=== PATIENT | male | born 1930 | race African-American/Black ===

== ENCOUNTER → 2016-05-13 | Outpatient (CLI) | payer MEDICARE, OTHER ==
[2015-08-26 09:55] VITALS: BP 156/80
[~2016-05-13] MED LIST: AMLO5TAB4 PO; ASPI81TA2 PO; CARI350T PO; OXYC-250 PO; OXYC1TAB9 PO; TAMS0.4C97 PO
--- NOTE | 2016-05-13 17:41 | RAD ---
APPROVED REPORT Patient Location : OUT-PATIENT Indications Stasis Disease Venous Ulcers Skin Changes Deep System Deep Venous Thrombosis present : No Deep Venous Reflux present : Yes Greater Saphenous Veins (GSV) Significant venous relux noted in the RIGHT GSV at the following levels : Superficial Femoral Junctio n Significant venous relux noted in the LEFT GSV at the following levels : Superficial Femoral Junction Accessory Veins Right Anterior Accessory Vein : Present : Yes Leftt Anterior Accessory Vein : Present : Yes Findings Venous reflux study of the bilateral greater and lesser saphenous veins was performed. The right grea t saphenous vein is positive for reflux with a maximum time of 2.8 seconds and a greatest diameter me asurement of 6.8 mm. The left great saphenous vein is positive for reflux with a maximum time of 3.1 seconds and measures approximately 5.9 mm. The bilateral lesser saphenous veins were unable to be imaged due to small size and lack of clear loco ntification by duplex ultrasonography. Multiple perforators are noted on the right side measuring 1 mm to 4.4 mm. Right side: Perforators are noted approximately 15, 18, 25, 26 and 35 cm up and 6, 6, 8, 8, 9 cm back , respectively. Left side: 1 funeral service apprentice 15 cm up in 67 m back with a diameter of 2.5 mm is noted. Critical Notification Critical Value: No <Conclusion> Positive for significant reflux in the bilateral greater saphenous veins with multiple calf perforato rs noted bilaterally.
== END | disposition home or self-care (01) ==
LOC: US 15:08
PROVIDERS: ATTEND Internal Medicine Cardiovascular Disease
DX: I10 Essential (primary) hypertension (principal); I87.2 Venous insufficiency (chronic) (peripheral)
CPT/HCPCS: 93970

== ENCOUNTER → 2016-06-01 | Outpatient (CLI) | payer MEDICARE, OTHER ==
[2015-08-26 09:55] VITALS: BP 156/80
--- NOTE | 2016-06-01 12:53 | CARD ---
APPROVED REPORT EXAM: Two-dimensional and M-mode echocardiogram with Doppler and color Doppler. Other Information Quality : Average Rhythm : NSR INDICATION Hypertension/HCVD 2D DIMENSIONS RVDd2.6 (2.9-3.5cm)Left Atrium(2D)3.2 (1.6-4.0cm) IVSd1.2 (0.7-1.1cm)Aortic Root(2D)3.4 (2.0-3.7cm) LVDd4.7 (3.9-5.9cm)LVOT Diameter2.0 (1.8-2.4cm) PWd1.2 (0.7-1.1cm)LVDs3.5 (2.5-4.0cm) FS (%) 26.5 %SV53.7 ml LVEF(%)51.8 (>50%) Aortic Valve AoV Peak Miller.173.9cm/sAoV VTI29.1cm AO Peak GR.12.1mmHgLVOT Peak Miller.129.3cm/s AO Mean GR.6mmHgAVA (VMAX)2.36cm2 AI P 1/2 [id number] Mitral Valve MV E Kjpphgbm37.5cm/sMV E Peak Gr.4mmHg MV DECEL [id number] A Fqpxxthv489.4cm/s MV E Mean Gr.1mmHgMV [id number] E/A Ratio0.5MV A Ihwvnsyp09ri MVA (PHT)3.08cm2 Tricuspid Valve TR P. Hpxrxpci645bc/sRAP [id number] TR Peak Gr.05fwRqZHNB02czUh LEFT VENTRICLE The left ventricle is normal size. There is borderline concentric left ventricular hypertrophy. Left ventricle systolic function is normal. The Ejection Fraction is 50-55%. There is normal LV segmental wall motion. Tissue Doppler imaging reveals mild left ventricular diastolic dysfunction. Transmitral Doppler flow pattern is Grade I-abnormal relaxation pattern. RIGHT VENTRICLE The right ventricle is normal size. The right ventricular systolic function is normal. ATRIA The left atrium size is normal. The right atrium size is normal. The interatrial septum is intact wit h no evidence for an atrial septal defect or patent foramen ovale as noted on 2-D or Doppler imaging. AORTIC VALVE The aortic valve is mildly sclerotic. The aortic valve is trileaflet. Doppler and Color Flow revealed trace aortic regurgitation. There is no significant aortic valvular stenosis. MITRAL VALVE The mitral valve leaflets are thickened. There is no mitral valve stenosis. Doppler and Color Flow re vealed no mitral valve regurgitation noted. TRICUSPID VALVE The tricuspid valve is normal in structure and function. Doppler and Color Flow revealed mild tricusp id regurgitation. The PA pressure was estimated at 23 mmHg. There is no tricuspid valve stenosis. PULMONIC VALVE The pulmonic valve is not well visualized. Doppler and Color Flow revealed no pulmonic valvular regur gitation. There is no pulmonic valvular stenosis. GREAT VESSELS The aortic root is normal in size. Normal pulmonary venous flow (Doppler). The IVC is normal in size and collapses >50% with inspiration. PERICARDIAL EFFUSION There is no evidence of significant pericardial effusion. Critical Notification Critical Value: No <Conclusion> The left ventricle is normal size. Left ventricle systolic function is normal. The Ejection Fraction is 50-55%. There is borderline concentric left ventricular hypertrophy. There is no significant aortic valvular stenosis. Doppler and Color Flow revealed trace aortic regurgitation. Doppler and Color Flow revealed no mitral valve regurgitation noted. Doppler and Color Flow revealed mild tricuspid regurgitation. The PA pressure was estimated at 23 mmHg.
== END | disposition home or self-care (01) ==
LOC: ECHO 08:13
PROVIDERS: ATTEND Internal Medicine Cardiovascular Disease
DX: I10 Essential (primary) hypertension (principal); I08.2 Rheumatic disorders of both aortic and tricuspid valves
CPT/HCPCS: 93306

== ENCOUNTER → 2016-06-16 | Outpatient (CLI) | payer MEDICARE, OTHER ==
[2015-08-26 09:55] VITALS: BP 156/80
--- NOTE | 2016-06-15 14:48 | RAD ---
APPROVED REPORT Bilateral Lower Extremity Venous Study for DVT Patient Location: OUT-PATIENT Indications s/p ablation/venous insuff Vein Imaging (Right) CFV (R): Compressible SFJ (R): Compressible FEM (R): Compressible POP (R): Compressible DFV (R): Compressible PTV (R): Spontaneous Peroneals (R): Spontaneous Vein Imaging (Left) CFV (L): Compressible SFJ (L): Compressible FEM (L): Compressible POP (L): Compressible DFV (L): Compressible PTV (L): Spontaneous Peroneals (L): Spontaneous Doppler Evaluation (Right) CFV (R): Spontaneous POP (R):Spontaneous Doppler Evaluation (Left) CFV (L):Spontaneous POP (L):Spontaneous Findings Carbajal scale images demonstrate normal compressibility of the bilateral common femoral, superficial fem oral and popliteal veins. The bilateral great saphenous veins are occluded due to prior ablation. Normal spectral waveforms and color doppler noted with spontaneous flow noted below the knees. The be low knee veins are not well visualized. Critical Notification Critical Value: No <Conclusion> No evidence of DVT in the bilateral lower extremities. Previously ablated bilateral GSV.
== END | disposition home or self-care (01) ==
LOC: US 10:00
PROVIDERS: ATTEND Internal Medicine Cardiovascular Disease
DX: I87.2 Venous insufficiency (chronic) (peripheral) (principal)
CPT/HCPCS: 93970

== ENCOUNTER → 2016-10-03 | Outpatient (CLI) | payer MEDICARE, OTHER ==
[2015-08-26 09:55] VITALS: BP 156/80
[~2016-10-03] MED LIST changes: +ASPI-630 PO; -ASPI81TA2 PO; +NAPR220C4 PO; -OXYC-250 PO; +OXYC-328 PO; +TRIA15CR3 TP
[2016-10-03 08:49] LABS: BILIRUBIN,URINE NEGATIVE (NEG); GLUCOSE,URINE NEGATIVE (NEG); NITRITE,URINE NEGATIVE (NEG); PROTEIN,URINE NEGATIVE (NEG-TRACE); UROBILINOGEN,URINE 0.2 mg/dL (0.2 mg/dL)
[2016-10-03 08:56] LABS: BACTERIA,URINE 0 /HPF (0-FEW); RBC,URINE 0 /HPF (0-2); WBC,URINE 0 /HPF (0-4)
[2016-10-03 09:32] LABS: ALBUMIN 3.7 g/dL (3.4-5.0); CALCIUM 8.8 mg/dL (8.5-10.1); CREATININE 0.8 mg/dL (0.7-1.3); GFR 111.7; POTASSIUM 4.2 mmol/L (3.5-5.1)
[2016-10-03 09:33] LABS: BASO # 0.1 x10^3/uL (0.0-0.2); BASO % 1 % (0-3); EOS % 6 % (0-3); HEMATOCRIT 44.5 % (39.0-53.0); HEMOGLOBIN 14.8 g/dL (13.0-17.5); LYMPH # 1.3 x10^3/uL (1.0-4.8); LYMPH % 25 % (24-48); MEAN CORPUSCULAR HEMOGLOBIN 29 pg (25-35); MEAN CORPUSCULAR HGB CONC 33 g/dL (31-37); MEAN CORPUSCULAR VOLUME 88 fL (79-100); MONO % 10 % (0-9); NEUT % 58 % (31-73); PLATELET COUNT 247 x10^3/uL (140-400); RED BLOOD COUNT 5.05 x10^6/uL (4.30-5.70); RED CELL DISTRIBUTION WIDTH 15.9 % (11.5-14.5); WHITE BLOOD COUNT 5.1 x10^3/uL (4.0-11.0)
[2016-10-03 09:54] LABS: PROTHROMBIN TIME PATIENT 12.8 SEC (11.7-14.0)
--- NOTE | 2016-10-03 15:20 | RAD ---
Chest, 2 views, 10/03/2016: History: Preop evaluation for knee surgery The heart size and pulmonary vascularity are normal. There is tortuosity of the thoracic aorta. No pulmonary infiltrate is seen. There is no evidence of pleural fluid. Moderate hypertrophic spurring is present in the spine. IMPRESSION: No acute cardiopulmonary abnormality is detected.
== END | disposition home or self-care (01) ==
LOC: SURGPAT 13:44
PROVIDERS: ATTEND Orthopaedic Surgery
DX: Z01.818 Encounter for other preprocedural examination (principal); I10 Essential (primary) hypertension; R79.1 Abnormal coagulation profile
CPT/HCPCS: 36415; 71020; 80048; 81001; 82040; 85025; 85610; 85651; 85730; 87641

== ENCOUNTER 2016-10-18 08:48 | Inpatient (IN) | payer MEDICARE, OTHER ==
--- NOTE | 2016-10-17 12:21 | PDOC1 ---
History and Physical Date of Admission Date of Admission DATE: 10/18/16 Identification/Chief Complaint Chief Complaint left knee osteoarthritis pain Problems: Source Source: Chart review History of Present Illness History of Present Illness The patient is an 85 year old male who presents today with persisting left knee pain for the last year. He had a series of Orthovisc injections that he states were no help, the last being 08/08/2016. He has a history of right total knee arthroplasty 11 years ago, and would like a left knee replacement. He complains of persisting swelling in his right knee. He lives at home and drives. Past Medical History Past Medical History venous insuf, frequent urination, insomnia, DJD, back pain, pulmonary nodules - stable 2014 Cardiovascular: HTN, Hyperlipidemia Musculoskeletal: Osteoarthritis Past Surgical History Past Surgical History: Total knee replacement (right - 11/2002, L3-5 spinal fuxion, left shoulder, left orchiectomy, umbilical hernia) Family History Family History: Cancer, Hypertension Social History Smoke: Quit (07/2013) ALCOHOL: none Drugs: None Current Medications Current Medications Active Scripts Active Reported Triamcinolone Acetonide 0.1% Cream (Triamcinolone Acetonide) 15 Gm Cream..g. 1 Teresa TP Aleve (Naproxen Sodium) 220 Mg Capsule 220 Mg PO BID Soma (Carisoprodol) 350 Mg Tablet 1 Tab PO BID PRN Oxycodone-Acetaminophen 10-325 (Oxycodone Hcl/Acetaminophen) 1 Each Tablet 1 Tab PO Q4HRS PRN Norvasc (Amlodipine Besylate) 5 Mg Tablet 10 Mg PO DAILY Flomax (Tamsulosin Hcl) 0.4 Mg Cap.er.24h 1 Cap PO DAILY Allergies Allergies: Coded Allergies: pentazocine (Verified Adverse Reaction, Intermediate, Hives, 09/30/16) diclofenac (Verified Adverse Reaction, Unknown, Unknown, 09/30/16) Physical Exam General: Alert, Oriented X3, Cooperative, No acute distress HEENT: Atraumatic, EOMI Lungs: Normal air movement Heart: RRR Abdomen: Soft Extremities: No clubbing, No cyanosis, No edema, Normal pulses Skin: No rashes, No breakdown, No significant lesion Neuro: Normal speech, Sensation intact Psych/Mental Status: Mental status NL, Mood NL Images Images IMAGING REPORT Joint survey, hips knees and ankles Clinical information: Preoperative for total knee arthroplasty Comparison: None. Findings Bones: The angle between the right hip-ankle mechanical axis and the femoral shaft is 5. The angle between the left hip-ankle mechanical axis and the femoral shaft is 5 . The mechanical axis crosses near the center of the right knee, indicating proper mechanical alignment or trace varus alignment. The mechanical axis crosses far medial to the center of the left knee, indicating varus left knee alignment. Joints: There is narrowing of the left knee joint medially. The right knee joint has a total knee arthroplasty. The hips and ankles show minimal degenerative changes. Soft tissue: Normal. Impression: Varus alignment of the left knee. The difference between the mechanical axis and femoral shaft anatomic axis is 5 bilaterally VTE Prophylaxis Ordered VTE Prophylaxis Devices: Yes VTE Pharmacological Prophylaxi: Yes Assessment/Plan Assessment/Plan Left knee osteoarthritis pain. Despite his advanced age, Dr. Lala thinks he would do well with a knee replacement. Dr. Lala demonstrated the surgery using sawbones models and actual knee replacement parts. We discussed the joint center, the expected preoperative and postoperative plans and the expected hospitalization. We discussed the potential risks of infection, neurovascular injury, bleeding, blood clots, need for revision surgery, or other potential surgical or anesthetic complications. Preventing Falls: Care Instructions material was printed. ROMA UMANZOR Oct 17, 2016 12:21
[~2016-10-18] VITALS: Ht 168.9 cm; Wt 85.7 kg
[2016-10-18] VITALS (7 sets, daily range): BP systolic 136–154; BP diastolic 70–87
[~2016-10-18 08:48] MED LIST changes: +ACETAMINOPHEN 500 MG TABLET PO PRN; +BACITRACIN 50,000 UNIT in IV NORMAL SALINE 1000ML BAG 1,000 ML IRR ONE; +CELECOXIB 200 MG CAPSULE. PO PRN; +LIDOCAINE 1% 1 ML SYRINGE. ID PRN; +MORPHINE SULFATE 2 MG/ML DISP.SYRIN. IV PRN; +ONDANSETRON PF 4 MG/2 ML VIAL. IV PRN; +TRANEXAMIC ACID 1,000 MG in IV NS 50ML -- 1ST BAG INJ ONE; +TRANEXAMIC ACID 1,000 MG in IV NS 50ML -- 2ND BAG INJ ONE; +[UNRECOGNIZED DRUG - REMARK] INT ART ONE; +fentaNYL PF VIAL 100 MCG/2 ML VIAL IV PRN
[2016-10-18] MEDS ORDERED: CELE200C PO (09:19)
[2016-10-18] MEDS: IV RINGERS,LACTATED 1000ML 1,000 ML IV SCH ×2 (09:48→15:04)
[2016-10-18] MEDS ORDERED: SEVOFLURANE 61 TO 120 MINUTES. IH ONE (10:26)
[2016-10-18] MEDS ORDERED: PROPOFOL 20 ML IV ONE (10:28)
[2016-10-18] MEDS ORDERED: PHENYLEPHRINE in 0.9% NACL PF 1 MG/10 ML DISP.SYRIN. IV ONE (10:28)
[2016-10-18] MEDS ORDERED: ONDANSETRON PF 4 MG/2 ML VIAL. ONE (10:28)
[2016-10-18] MEDS ORDERED: fentaNYL PF VIAL 100 MCG/2 ML VIAL ONE ×3 (10:28→14:27)
[2016-10-18] MEDS ORDERED: LIDOCAINE 2% PF Vial for OR 5 ML VIAL. ONE (10:28)
[2016-10-18] MEDS ORDERED: DEXAMETHASONE SOD PHOS 20 MG/5 ML VIAL. ONE (10:28)
[2016-10-18] MEDS ORDERED: VANCOMYCIN 1 GM VIAL. CEMENT ONE (12:23)
[2016-10-18] MEDS ORDERED: fentaNYL PF VIAL 250 MCG/5 ML VIAL ONE (12:45)
[2016-10-18] MEDS ORDERED: ACETAMINOPHEN 325 MG TABLET. PO PRN (14:00)
[2016-10-18] MEDS ORDERED: DEXTROSE 50% 25 GM / 50ML DISP.SYRIN. IV PRN (14:00)
[2016-10-18] MEDS ORDERED: MORPHINE SULFATE 10 MG/ML VIAL. IV PRN (14:00)
[2016-10-18] MEDS ORDERED: traMADol 50 MG TABLET PO PRN ×2 (14:00)
[2016-10-18] MEDS ORDERED: CALCIUM CARBONATE 500 MG TAB.CHEW PO PRN (14:00)
[2016-10-18] MEDS ORDERED: HYDROcodone/APAP 10/325 1 TAB TABLET PO PRN (14:00)
[2016-10-18] MEDS ORDERED: PROCHLORPERAZINE 5 MG TABLET. PO PRN (14:00)
[2016-10-18] MEDS ORDERED: PROCHLORPERAZINE 10 MG/2 ML VIAL. IV PRN (14:00)
[2016-10-18] MEDS ORDERED: diphenhydrAMINE 50 MG/ML VIAL IV PRN (14:00)
[2016-10-18] MEDS ORDERED: fentaNYL PF VIAL 100 MCG/2 ML VIAL IV PRN ×2 (14:00)
[2016-10-18] MEDS ORDERED: MORPHINE SULFATE 2 MG/ML DISP.SYRIN. IV PRN (14:00)
[2016-10-18] MEDS ORDERED: ZOLPIDEM 5 MG TABLET. PO PRN (14:00)
[2016-10-18] MEDS ORDERED: 0.9 % SODIUM CHLORIDE 10 ML DISP.SYRIN. IV PRN (14:00)
[2016-10-18] MEDS ORDERED: HYDROcodone/APAP 7.5/325MG 1 TAB TABLET PO PRN (14:00)
[2016-10-18] MEDS ORDERED: METOCLOPRAMIDE HCL 10 MG/2 ML VIAL. IV PRN (14:00)
[2016-10-18] MEDS ORDERED: MORPHINE SULFATE 4 MG/ML DISP.SYRIN. IV PRN ×2 (14:00)
[2016-10-18] MEDS ORDERED: SEVOFLURANE > 120 MINUTES. IH ONE (14:13)
[2016-10-18] MEDS ORDERED: CARISOPRODOL 350 MG TABLET PO PRN (14:15)
--- NOTE | 2016-10-18 14:22 | PDOC4 ---
Operative Note Operative Note Date of Procedure: October 18, 2016 Pre-Op Diagnosis: Osteoarthritis left knee Post-Op Diagnosis: Osteoarthritis left knee Procedure: left total knee arthroplasty Surgeon: Manda Lala MD Sales Promotion Officer: Mago Conroy PA-C, Jim St PA-C Anesthesia: General EBL: 100 mL Specimens Obtained: left knee bone and soft tissue Complications: none Implant Company: [employer] Drains: Hemovac plus pain catheter Tourniquet time: 64 Minutes Tourniquet Pressure: 350 mm Hg Indications for Procedure: Arthritis pain unrelieved by nonoperative management. Findings: Severe osteoarthritis with bone on bone contact in all three compartments with varus malalignment Implants used: Size 4 left bicruciate stabilized Journey II BCS cobalt chrome femoral component, size 4 left Journey nonporous tibial baseplate, size 3 -4 15 mm constrained left Journey II BCS XLPE articular insert, 38 mm oval Carol Ann II resurfacing patellar component Procedure in Detail: The patient was identified in the preoperative holding area, and the correct left lower extremity was marked by me. The patient was taken to the operating room where the patient was anesthetized by the Department of Anesthesia. Preoperative antibiotics were given intravenously. Tranexamic acid 1 g was given intravenously for intraoperative hemostasis. A "time-out" procedure was performed. The patient was positioned supine on the operative table with a tourniquet on the upper left thigh. The left lower limb was thoroughly prepped and draped in sterile fashion. An impervious stockinet and adhesive drape were used such that the skin was entirely covered. An Allred leg mendez was used. The operating team wore personal exhaust-ventilated hoods. The tourniquet was inflated to 350 Hg. A midline skin incision was made with a scalpel using the patella and tibial tubercle as landmarks. Electrocautery was used for hemostasis. My development assistant used rake retractors. A medial parapatellar arthrotomy incision was used with extension into the distal quadriceps tendon. The patella was retracted laterally and Hohmann retractors were now used by my development assistant. Excess synovium, the menisci, and the cruciate ligaments were resected sharply. The patella was assessed and excess synovium and osteophytes around the patellar articulation were removed. The patella was measured with a caliper, cut freehand with a saw using caliper measurements, sized, and then drilled for an oval three-pegged patella component. Periarticular injection was used in the suprapatellar pouch and distal quadriceps muscle. Whitesides's line was assessed on the femur. An intra-medullary 5 degree cutting guide was pinned to the femur, and a distal femoral cut was made with an oscillating saw. An additional 2 mm resection was used due to the deep femoral sulcus, and deficient condyle.My development assistant held Hohmann retractors and an [facility] retractor to protect the medial and lateral collateral ligaments, the patellar tendon, the skin and the other soft tissues. An anterior referencing guide was applied with external rotation of 3 to match [place] s line. A 5-in-1 Journey II cutting guide was then applied and pinned to the femur. The posterior, anterior, and all chamfer cuts were made with the oscillating saw. An extramedullary guide was pinned to the tibia and rotational alignment and the planned resection thickness assessed. An external alignment pastora was used to verify the planned cut in the varus-valgus plane and regarding posterior slope referencing the tibial tubercle, the tibial shaft, the ankle joint, and the second metatarsal. The upper tibia was cut made with an oscillating saw. My development assistant held Hohmann retractors and a posterior cruciate ligament retractor to protect the medial and lateral collateral ligaments, the patellar tendon, the skin, the peroneal nerve and the other soft tissues. The upper tibia was sized with a trial baseplate. The posterior compartment was cleared of osteophytes and loose bodies, and posterior capsule released. Tish-articular injection was used in the posterior compartment. The box cut for a posterior stabilized component was made. A preliminary reduction was performed with a trial femur, trial tibial baseplate and trial polyethylene. Soft-tissue balancing was now performed, and extension and rotation of the alignments was checked using a guide pastora in the tibial trial and a guide pin in the femur. A medial release was required, using a 10 blade scalpel, and a Zendejas elevator to elevate the medial structures from the upper medial tibia. The stability was assessed using different thicknesses of tibial articular surface to find satisfactory stability and good range of motion. The rotation of the tibial component was marked on the upper tibia. Final trial reduction was now performed verifying patella tracking and tibiofemoral stability and alignment. The tibia preparation was completed with a drill, saw, and fin punch at the previously noted rotation. The final implants were verified and opened. Outer gloves were changed by the operating team. The bone cuts were washed thoroughly with the Perry InterPulse device and dried. Two packages of Faulkner + Nephew Rally HV bone cement were mixed in powdered form with 1 gm of Vancomycin, then vacuum-mixed with the monomer, and placed into a cement gun. The cut surfaces of the bone were thoroughly dried with Montoya-tip suction and with laparotomy sponges for cement interdigitation. The final components were cemented into place. The knee was kept at full extension while the cement hardened, and excess cement was removed. Tranexamic acid 1 g was redosed intravenously for additional intraoperative hemostasis. A final periarticular injection was used for pain relief. The tourniquet was released, and electrocautery was used for hemostasis. A final check of [id number] and stability was made, and the polyethylene implant final size was chosen. The polyethylene implant was secured to the tibial baseplate, and the knee was reduced a final time. Thorough irrigation was used. Hemovac and pain catheter were used.The arthrotomy was closed with interrupted [id number]-ot-ufpap #1 PDS suture. The arthrotomy incision was then run with #1 STRATAFIX Symmetric PDS Plus Knotless suture. The subcutaneous tissues were closed with #2-0 Vicryl by my development assistant. The skin was approximated with 3-0 STRATAFIX Spiral MONOCRYL Plus Knotless suture by my development assistant. The skin incision was then covered and reinforced with Dermabond Prineo mesh skin closure dressing. A bulky sterile gauze dressing was applied. Needle and sponge counts were correct. MANDA LALA MD Oct 18, 2016 14:22
[2016-10-18] MEDS: PROCHLORPERAZINE 10 MG/2 ML VIAL. IV PRN ×2 (14:30→15:13)
[2016-10-18] MEDS: fentaNYL PF VIAL 100 MCG/2 ML VIAL IV PRN ×2 (14:30→14:53)
--- NOTE | 2016-10-18 14:52 | RAD ---
2 views left knee without comparison for postop, total knee arthroplasty. Findings: Postsurgical changes of a total knee arthroplasty are present. No periprosthetic lucencies are identified. No unexpected radiopaque foreign bodies. A surgical drain is present in the suprapatellar space. Impression: 1. Postsurgical changes of a total knee arthroplasty.
[2016-10-18] MEDS ORDERED: HYDROmorphone 2 MG/ML VIAL ONE (14:59)
[2016-10-18] MEDS: HYDROmorphone 2 MG/ML VIAL IV PRN ×3 (15:13→15:55)
[2016-10-18] MEDS: FERROUS SULFATE 325 MG TABLET. PO SCH (17:37)
[2016-10-18] MEDS: oxyCODONE ER 10 MG TAB.ER.12H PO SCH (17:37)
[2016-10-18] MEDS: IV DEXTROSE 5 %-0.45 % NACL 1,000 ML IV SCH (17:38)
[2016-10-18] MEDS ORDERED: [UNRECOGNIZED DRUG - OTHER] INT ART SCH (18:00)
[2016-10-18] MEDS ORDERED: KETOROLAC TROMETHAMINE INT ART SCH (18:00)
[2016-10-18] MEDS ORDERED: EPINEPHRINE INT ART SCH (18:00)
[2016-10-18] MEDS ORDERED: BUPIVACAINE MPF 0.25% INT ART SCH (18:00)
[2016-10-18] MEDS: oxyCODONE/APAP 7.5/325 1 TAB TABLET PO PRN (20:09)
[2016-10-18] MEDS: ASPIRIN ENTERIC COATED 325 MG TABLET.DR. PO SCH (21:51)
[2016-10-18] MEDS: CELECOXIB 200 MG CAPSULE. PO SCH (21:51)
[2016-10-19 03:00] VITALS: BP 161/89
--- NOTE | 2016-10-19 04:00 | ACF ---
Admission Forms Criteria PAIN MANAGEMENT GR Clinical Indications for Admission to Inpatient Care (Place 'X' for any and all applicable criteria): Hospital admission is needed for appropriate care of the patient because of 1 or more of the following are present (1)(2)(3)(4)(5): [ ]I. Severe pain requiring acute inpatient management as indicated by 1 or more of the following (2)(5)(10): [ ]a) Continuous or frequent (eg, every 2 to 4 hours) parenteral analgesics required [A] [ ]b) Necessity (ie, alternative approaches not effective) for analgesic regimen that can only be performed or initiated in inpatient setting [X]II. Pain causing debilitation to the point of inability to function or be supported at any other level of care [ ]III. Severe side effects from pain medications as indicated by ANY ONE of the following (12)(13)(14)(15): [ ]a) Uncontrollable seizures [ ]b) Cardiac arrhythmias of immediate concern [ ]c) Dehydration that is severe or persistent [ ]d) Vomiting that is severe or persistent [ ]e) Altered mental status that is severe or persistent [ ]f) Obstipation with inadequate GI function to maintain nutrition The original [employer] content created by [employer] has been revised. The portions of the content which have been revised are identified through the use of italic text or in bold, and [facility] has neither reviewed nor approved the modified material. All other unmodified content is copyright [employer]. Please see references footnoted in the original [employer] edition 2016 Admission Criteria Met?: Yes TIM MCCLAIN Oct 19, 2016 04:00
[2016-10-19] MEDS: oxyCODONE/APAP 7.5/325 1 TAB TABLET PO PRN ×6 (04:29→21:23)
[2016-10-19 05:54] LABS: PROTHROMBIN TIME PATIENT 12.7 SEC (11.7-14.0)
[2016-10-19] MEDS ORDERED: MAGNESIUM HYDROXIDE 2,400 MG/30 ML ORAL.SUSP. PO PRN (06:00)
[2016-10-19 06:19] VITALS: BP 166/78
[2016-10-19 06:26] LABS: HEMATOCRIT 39.5 % (39.0-53.0); HEMOGLOBIN 13.3 g/dL (13.0-17.5); RED BLOOD COUNT 4.46 x10^6/uL (4.30-5.70); RED CELL DISTRIBUTION WIDTH 16.6 % (11.5-14.5)
[2016-10-19] MEDS: MULTIVITAMIN with MINERAL TABLET. PO SCH (08:25)
[2016-10-19] MEDS: ASPIRIN ENTERIC COATED 325 MG TABLET.DR. PO SCH ×2 (08:26→21:22)
[2016-10-19] MEDS: CELECOXIB 200 MG CAPSULE. PO SCH ×2 (08:26→21:22)
[2016-10-19] MEDS: SENNOSIDES/DOCUSATE 8.6/50MG TABLET. PO SCH (08:26)
[2016-10-19] MEDS: amLODIPine BESYLATE 10 MG TABLET PO SCH (08:28)
[2016-10-19] MEDS: FERROUS SULFATE 325 MG TABLET. PO SCH ×2 (08:28→17:25)
[2016-10-19] MEDS ORDERED: TAMSULOSIN 0.4 MG CAP.ER.24H. PO SCH (09:00)
--- NOTE | 2016-10-19 09:44 | PDOC ---
PROGRESS NOTES Subjective Subjective Doing well. Pain controlled. Objective Vital Signs Vital Signs Date Time Temp Pulse Resp B/P (MAP) Pulse Ox O2 Delivery O2 Flow Rate FiO2 10/19/16 08:28 93 139/68 10/19/16 08:26 Room Air 10/19/16 06:19 98.1 20 95 98.1 10/18/16 20:09 2.0 Physical Exam Dressing dry. Pain catheter and Hemovac in place. Good dorsiflexion and plantarflexion of the foot with no evidence of neurovascular injury or DVT. Calves are soft and non-tender. Negative Homans. Peripheral pulses and light touch sensation intact. Labs Laboratory Tests Test 10/19/16 05:10 10/19/16 05:15 White Blood Count 12.0 x10^3/uL (4.0-11.0) Red Blood Count 4.46 x10^6/uL (4.30-5.70) Hemoglobin 13.3 g/dL (13.0-17.5) Hematocrit 39.5 % (39.0-53.0) Mean Corpuscular Volume 88 fL (79-100) Mean Corpuscular Hemoglobin 30 pg (25-35) Mean Corpuscular Hemoglobin Concent 34 g/dL (31-37) Red Cell Distribution Width 16.6 % (11.5-14.5) Platelet Count 168 x10^3/uL (140-400) Prothrombin Time 12.7 SEC (11.7-14.0) Prothromb Time International Ratio 1.0 (0.8-1.1) Laboratory Tests Test 10/19/16 05:10 10/19/16 05:15 White Blood Count 12.0 x10^3/uL (4.0-11.0) Red Blood Count 4.46 x10^6/uL (4.30-5.70) Hemoglobin 13.3 g/dL (13.0-17.5) Hematocrit 39.5 % (39.0-53.0) Mean Corpuscular Volume 88 fL (79-100) Mean Corpuscular Hemoglobin 30 pg (25-35) Mean Corpuscular Hemoglobin Concent 34 g/dL (31-37) Red Cell Distribution Width 16.6 % (11.5-14.5) Platelet Count 168 x10^3/uL (140-400) Prothrombin Time 12.7 SEC (11.7-14.0) Prothromb Time International Ratio 1.0 (0.8-1.1) Imaging Postoperative x-rays reviewed by me, showing satisfactory total knee replacement , with no apparent complications. Assessment Assessment POD #1 left TKA Problems: Plan Plan of Care Continue POC including DVT prophylaxis and physical therapy. States he takes Flomax twice daily at home, so changed to BID. ROMA UMANZOR Oct 19, 2016 09:44
[2016-10-19] MEDS: IV DEXTROSE 5 %-0.45 % NACL 1,000 ML IV SCH ×3 (11:00→21:00)
[2016-10-19 11:15] VITALS: BP 123/69
[2016-10-19] MEDS ORDERED: BISACODYL 10 MG SUPP.RECT. PR PRN (16:00)
[2016-10-19] MEDS: oxyCODONE ER 10 MG TAB.ER.12H PO SCH (17:25)
[2016-10-19 18:30] VITALS: BP 139/72
[2016-10-19] MEDS: TAMSULOSIN 0.4 MG CAP.ER.24H. PO SCH (21:23)
[2016-10-20] MEDS: oxyCODONE/APAP 7.5/325 1 TAB TABLET PO PRN ×4 (03:05→21:41)
[2016-10-20 06:00] VITALS: BP 135/70
[2016-10-20 06:02] LABS: HEMATOCRIT 35.5 % (39.0-53.0); HEMOGLOBIN 11.5 g/dL (13.0-17.5)
[2016-10-20 06:19] LABS: INR 1.1 (0.8-1.1); PROTHROMBIN TIME PATIENT 13.5 SEC (11.7-14.0)
[2016-10-20] MEDS: CELECOXIB 200 MG CAPSULE. PO SCH ×2 (08:15→21:40)
[2016-10-20] MEDS: SENNOSIDES/DOCUSATE 8.6/50MG TABLET. PO SCH (08:15)
[2016-10-20] MEDS: FERROUS SULFATE 325 MG TABLET. PO SCH ×2 (08:15→17:15)
[2016-10-20] MEDS: MULTIVITAMIN with MINERAL TABLET. PO SCH (08:15)
[2016-10-20] MEDS: amLODIPine BESYLATE 10 MG TABLET PO SCH (08:15)
[2016-10-20] MEDS: TAMSULOSIN 0.4 MG CAP.ER.24H. PO SCH ×2 (08:15→21:40)
[2016-10-20] MEDS: ASPIRIN ENTERIC COATED 325 MG TABLET.DR. PO SCH ×2 (08:15→21:00)
--- NOTE | 2016-10-20 13:17 | PDOC ---
PROGRESS NOTES Subjective Subjective Doing well. Pain controlled. Objective Vital Signs Vital Signs Date Time Temp Pulse Resp B/P (MAP) Pulse Ox O2 Delivery O2 Flow Rate FiO2 10/20/16 08:16 Room Air 10/20/16 08:15 73 135/70 10/20/16 06:00 98.8 18 95 98.8 10/18/16 20:09 2.0 Physical Exam Expected swelling. Pain catheter and Hemovac have been removed. Prineo intact and dry. Spotty drainage from drain site. Calf soft and nontender with a negative Homans sign. Good dorsiflexion and plantarflexion with no evidence of neurovascular injury. Peripheral pulses and light touch sensation intact. Labs Laboratory Tests Test 10/19/16 05:10 10/19/16 05:15 10/20/16 05:25 10/20/16 05:30 White Blood Count 12.0 x10^3/uL (4.0-11.0) Red Blood Count 4.46 x10^6/uL (4.30-5.70) Hemoglobin 13.3 g/dL (13.0-17.5) 11.5 g/dL (13.0-17.5) Hematocrit 39.5 % (39.0-53.0) 35.5 % (39.0-53.0) Mean Corpuscular Volume 88 fL (79-100) Mean Corpuscular Hemoglobin 30 pg (25-35) Mean Corpuscular Hemoglobin Concent 34 g/dL (31-37) 32 g/dL (31-37) Red Cell Distribution Width 16.6 % (11.5-14.5) Platelet Count 168 x10^3/uL (140-400) Prothrombin Time 12.7 SEC (11.7-14.0) 13.5 SEC (11.7-14.0) Prothromb Time International Ratio 1.0 (0.8-1.1) 1.1 (0.8-1.1) Laboratory Tests Test 10/20/16 05:25 10/20/16 05:30 Prothrombin Time 13.5 SEC (11.7-14.0) Prothromb Time International Ratio 1.1 (0.8-1.1) Hemoglobin 11.5 g/dL (13.0-17.5) Hematocrit 35.5 % (39.0-53.0) Mean Corpuscular Hemoglobin Concent 32 g/dL (31-37) Assessment Assessment POD #2 TKA Problems: Plan Plan of Care Continue DVT prophylaxis and physical therapy. Planned discharge tomorrow. Office f/u in 10-14 days. ROMA UMANZOR Oct 20, 2016 13:16
[2016-10-20] MEDS: oxyCODONE ER 10 MG TAB.ER.12H PO SCH (17:15)
--- NOTE | 2016-10-20 17:28 | PATHOLOGY ---
PATHOLOGY REPORT * * * * * * * * FINAL DIAGNOSIS: Segments of bone and soft tissue, left total knee arthroplasty: - Advanced degenerative arthritis, with focal subarticular cystic degeneration. (JPM:db; 10/20/2016) REPORT ELECTRONICALLY SIGNED BY: Delfino Hoffman M.D. DATE/TIME: 10/20/2016 17:28 * * * * * * * * GROSS PATHOLOGY: Received in formalin labeled "Tobi Ribera, left knee tissue," are multiple segments of bone, including tibial plateau, measuring 10.0 x 10.0 x 5.6 cm in aggregate dimensions admixed with soft tissue; meniscus is present. The specimen shows focal eburnation of the articular surfaces. Auto Transport Driver sections of bone and soft tissue are submitted in cassette A1, following decalcification. ([facility]; 10/19/2016) INITIAL CPT CODE(S): A; 04609, 87929 Professional services performed [place] [facility] [place] [address] Technical services performed by [facility] at [address] [place] [address]. SPECIMEN(S) RECEIVED: A.Left knee tissue CLINICAL HISTORY: Left knee OA PATIENT: TOBI RIBERA /AGE: 1011/29/1930 (Age: 85) PATIENT #: [id number] ALT CASE #: SPECIMEN COLLECTION DATE: 10/18/2016 SPECIMEN RECEIVED DATE: 10/18/2016 [facility] - [address] [place] [address] - PHONE: [phone] * * * END OF REPORT * * *
[2016-10-20 18:30] VITALS: BP 146/74
[2016-10-21 06:00] VITALS: BP 139/70
[2016-10-21 06:19] LABS: HEMOGLOBIN 11.2 g/dL (13.0-17.5)
[2016-10-21 06:33] LABS: INR 1.1 (0.8-1.1); PROTHROMBIN TIME PATIENT 13.7 SEC (11.7-14.0)
[2016-10-21] MEDS: FERROUS SULFATE 325 MG TABLET. PO SCH (08:26)
[2016-10-21] MEDS: ASPIRIN ENTERIC COATED 325 MG TABLET.DR. PO SCH (08:26)
[2016-10-21] MEDS: CELECOXIB 200 MG CAPSULE. PO SCH (08:26)
[2016-10-21] MEDS: SENNOSIDES/DOCUSATE 8.6/50MG TABLET. PO SCH (08:27)
[2016-10-21] MEDS: MULTIVITAMIN with MINERAL TABLET. PO SCH (08:27)
[2016-10-21] MEDS: TAMSULOSIN 0.4 MG CAP.ER.24H. PO SCH (08:27)
[2016-10-21] MEDS: amLODIPine BESYLATE 10 MG TABLET PO SCH (08:27)
[2016-10-21] MEDS: oxyCODONE/APAP 7.5/325 1 TAB TABLET PO PRN (08:28)
[2016-10-21] MEDS: oxyCODONE/APAP 5/325 1 TAB TABLET PO PRN ×2 (12:32→15:52)
--- NOTE | 2016-10-21 12:32 | PDOC ---
PROGRESS NOTES Subjective Subjective Doing well. Planning for discharge later today after PT. Objective Vital Signs Vital Signs Date Time Temp Pulse Resp B/P (MAP) Pulse Ox O2 Delivery O2 Flow Rate FiO2 10/21/16 08:27 73 139/70 10/21/16 06:00 17 99 Room Air 10/20/16 18:30 97.9 97.9 10/18/16 20:09 2.0 Physical Exam Expected swelling. Prineo dressing intact and dry. Calf soft and nontender. Negative Homans. Good AROM ankle. Peripheral pulses and light touch sensation intact. Labs Laboratory Tests Test 10/20/16 05:25 10/20/16 05:30 10/21/16 04:40 Prothrombin Time 13.5 SEC (11.7-14.0) 13.7 SEC (11.7-14.0) Prothromb Time International Ratio 1.1 (0.8-1.1) 1.1 (0.8-1.1) Hemoglobin 11.5 g/dL (13.0-17.5) 11.2 g/dL (13.0-17.5) Hematocrit 35.5 % (39.0-53.0) 34.0 % (39.0-53.0) Mean Corpuscular Hemoglobin Concent 32 g/dL (31-37) 33 g/dL (31-37) Laboratory Tests Test 10/21/16 04:40 Hemoglobin 11.2 g/dL (13.0-17.5) Hematocrit 34.0 % (39.0-53.0) Mean Corpuscular Hemoglobin Concent 33 g/dL (31-37) Prothrombin Time 13.7 SEC (11.7-14.0) Prothromb Time International Ratio 1.1 (0.8-1.1) Assessment Assessment POD 3 TKA Problems: Plan Plan of Care Discharge later today, to home. Continue DVT prophylaxis and physical therapy. F/U 10-14 days. ROMA UMANZOR Oct 21, 2016 12:32
--- NOTE | 2016-10-21 12:36 | PDOC3 ---
Discharge Summary Visit Information Date of Admission: Oct 18, 2016 Date of Discharge: Oct 21, 2016 Admitting Diagnosis: left knee osteoarthritis pain Brief Hospital Course Allergies Allergies Coded Allergies Type Severity Reaction Last Updated Verified No Known Drug Allergies 10/18/16 No Vital Signs Vital Signs Date Time Temp Pulse Resp B/P (MAP) Pulse Ox O2 Delivery O2 Flow Rate FiO2 10/21/16 08:27 73 139/70 10/21/16 06:00 17 99 Room Air 10/20/16 18:30 97.9 97.9 Lab Results Laboratory Tests Test 10/20/16 05:25 10/20/16 05:30 10/21/16 04:40 Prothrombin Time 13.5 SEC (11.7-14.0) 13.7 SEC (11.7-14.0) Prothromb Time International Ratio 1.1 (0.8-1.1) 1.1 (0.8-1.1) Hemoglobin 11.5 g/dL (13.0-17.5) 11.2 g/dL (13.0-17.5) Hematocrit 35.5 % (39.0-53.0) 34.0 % (39.0-53.0) Mean Corpuscular Hemoglobin Concent 32 g/dL (31-37) 33 g/dL (31-37) Laboratory Tests Test 10/21/16 04:40 Hemoglobin 11.2 g/dL (13.0-17.5) Hematocrit 34.0 % (39.0-53.0) Mean Corpuscular Hemoglobin Concent 33 g/dL (31-37) Prothrombin Time 13.7 SEC (11.7-14.0) Prothromb Time International Ratio 1.1 (0.8-1.1) Brief Hospital Course 85 year old male who presented with knee osteoarthritis, for elective total knee arthroplasty. The patient underwent total knee arthroplasty under general anesthesia the day of admission. Perioperative antibiotics and DVT prophylaxis were used. Postoperatively physical therapy and case management were consulted. The patient progressed and is stable for discharge. Discharge Information Condition at Discharge: Stable Follow Up: Weeks (2) Disposition/Orders: D/C to Home w/ HH Scheduled Amlodipine Besylate (Norvasc), 10 MG PO DAILY, (Reported) Celecoxib (Celebrex), 400 MG PO 1X, (Reported) Naproxen Sodium (Aleve), 220 MG PO BID, (Reported) Tamsulosin Hcl (Flomax), 1 CAP PO DAILY, (Reported) Scheduled PRN Carisoprodol (Soma), 1 TAB PO BID PRN for PAIN, (Reported) Oxycodone Hcl/Acetaminophen (Oxycodone-Acetaminophen 10-325), 1 TAB PO Q4HRS PRN for PAIN, (Reported) Miscellaneous Medications Triamcinolone Acetonide (Triamcinolone Acetonide 0.1% Cream), 1 ALLYSSA TP, ( Reported) Patient Instructions Patient Instructions Patient Instructions Continue to WBAT with walker. Keep dressing dry and intact. F/U with [facility] in 10-14 days. Call for appointment. Physical therapy for TKA Continue DVT prophylaxis with ASA 325mg twice daily. ROMA UMANZOR Oct 21, 2016 12:36
[2016-10-21 14:30] VITALS: BP 106/56
== END 2016-10-21 17:01 | disposition home health service (06) | DRG 470 ==
LOC: OPSVCIP 08:48 → 4 SOUTHEST 16:00
PROVIDERS: ADMIT Orthopaedic Surgery; ATTEND Orthopaedic Surgery
PROC: 0SRD0J9 Replacement of Left Knee Joint with Synthetic Substitute, Cemented, Open Approach (ICD-10-PCS; principal; 2016-10-18 11:10)
DX: M17.12 Unilateral primary osteoarthritis, left knee (principal); I10 Essential (primary) hypertension; E78.5 Hyperlipidemia, unspecified; G47.00 Insomnia, unspecified; Z96.651 Presence of right artificial knee joint; Z88.6 Allergy status to analgesic agent; Z88.5 Allergy status to narcotic agent; Z87.891 Personal history of nicotine dependence; Z80.9 Family history of malignant neoplasm, unspecified; Z82.49 Family history of ischemic heart disease and other diseases of the circulatory system
CPT/HCPCS: 36415; 73560; 85014; 85018; 85027; 85610; 86850; 86900; 86901; 88305; 88311; J0171; J0690; J0780; J1100; J1170; J1885; J2270; J2370; J2405; J2704; J2795; J3010; J3370; J3490; J7030; J7120; 97116; 97150; 97530; 97535; C1769; J2001

== ENCOUNTER → 2016-10-31 | Outpatient (CLI) | payer MEDICARE, OTHER ==
[2016-10-21 14:30] VITALS: BP 106/56
[~2016-10-31] MED LIST changes: -ACETAMINOPHEN 500 MG TABLET PO PRN; -BACITRACIN 50,000 UNIT in IV NORMAL SALINE 1000ML BAG 1,000 ML IRR ONE; +CELE200C PO; -CELECOXIB 200 MG CAPSULE. PO PRN; -LIDOCAINE 1% 1 ML SYRINGE. ID PRN; -MORPHINE SULFATE 2 MG/ML DISP.SYRIN. IV PRN; -ONDANSETRON PF 4 MG/2 ML VIAL. IV PRN; -TRANEXAMIC ACID 1,000 MG in IV NS 50ML -- 1ST BAG INJ ONE; -TRANEXAMIC ACID 1,000 MG in IV NS 50ML -- 2ND BAG INJ ONE; -[UNRECOGNIZED DRUG - REMARK] INT ART ONE; -fentaNYL PF VIAL 100 MCG/2 ML VIAL IV PRN
--- NOTE | 2016-10-31 13:20 | RAD ---
Left lower extremity venous ultrasound, 9010 2017 : History: Left leg swelling and pain Duplex evaluation including grayscale, color flow and spectral Doppler analysis was performed. The femoral and popliteal veins show no filling defects to suggest DVT. The visualized calf veins are unremarkable. There is mild subcutaneous edema. Mildly prominent lymph nodes are noted at the left groin. IMPRESSION: There is no sonographic evidence of deep vein thrombosis in the left lower extremity
== END | disposition home or self-care (01) ==
LOC: US 11:37
PROVIDERS: ATTEND Physician Assistant Surgical
DX: M79.605 Pain in left leg (principal); M79.662 Pain in left lower leg; M79.89 Other specified soft tissue disorders
CPT/HCPCS: 93971

== ENCOUNTER → 2017-08-17 | Outpatient (CLI) | payer MEDICARE, OTHER ==
[2017-08-17] MEDS: REGADENOSON 0.4 MG/5 ML DISP.SYRIN. IV (09:24)
== END | disposition home or self-care (01) ==
LOC: NM 07:24
DX: M79.604 Pain in right leg (principal); M79.605 Pain in left leg; I10 Essential (primary) hypertension
CPT/HCPCS: 78452; 93017; 93925; 96374; 96375; 96376; A9500; J2785